=== PATIENT | female | born 1955 | race Caucasian/White ===

== ENCOUNTER 2021-05-25 06:33 | Emergency (ER) | payer MEDICARE, OTHER ==
[~2021-05-25 06:33] MED LIST: CELEXA10 MG PO; PRINIVIL20 MG PO; SYNTHROID112 MCG PO; ZOCOR40 MG PO
== END 2021-05-25 09:00 | disposition left against medical advice (07) ==
LOC: ER1 06:33
DX: Z53.21 Procedure and treatment not carried out due to patient leaving prior to being seen by health care provider (principal)

== ENCOUNTER → 2022-05-18 | Outpatient (CLI) | payer MEDICARE | LOC: KOH-I 10:54 | DX: M51.36 Other intervertebral disc degeneration, lumbar region (principal); M47.816 Spondylosis without myelopathy or radiculopathy, lumbar region | CPT/HCPCS: 72100; 72148 ==